=== PATIENT | male | born 1950 | race Caucasian/White ===

== ENCOUNTER 2017-07-26 13:34 | Emergency (ER) | payer MEDICARE ==
--- NOTE | 2017-07-26 15:11 | ER Document Report ---
ED Medical Screen (RME) - General Chief Complaint: Abdominal Pain Stated Complaint: LOWER ABDOMINAL PAIN Time Seen by Provider: 07/26/17 15:09 Notes: Painful swelling in the left groin. Patient says it has been a swollen lump for many months, but this morning around 4 AM it began to hurt severely. The lump will not go away. Painful to touch. No vomiting. Patient has a moderate sized incarcerated left inguinal hernia which I cannot reduce with him in standing position in the RME. TRAVEL OUTSIDE OF THE [place] IN LAST 30 DAYS: No - Related Data Allergies/Adverse Reactions: No Known Allergies Allergy (Verified 07/26/17 13:36) Past Medical History - Social History Chew tobacco use (# tins/day): No Frequency of alcohol use: Heavy Drug Abuse: None Renal/ Medical History: Denies: Hx Peritoneal Dialysis Physical Exam - Vital signs Vitals: Temp Pulse Resp BP Pulse Ox 97.7 F 78 18 178/89 H 94 07/26/17 14:01 07/26/17 14:01 07/26/17 14:01 07/26/17 14:01 07/26/17 14:01 Course - Vital Signs Vital signs: Temp Pulse Resp BP Pulse Ox 98.5 F 70 16 165/96 H 94 07/26/17 15:48 07/26/17 15:48 07/26/17 15:48 07/26/17 15:48 07/26/17 14:01 Doctor's Discharge - Discharge Clinical Impression: Reducible inguinal hernia Condition: Fair Disposition: HOME, SELF-CARE Instructions: Bowel Obstruction ([facility]), Hernia ([facility])
--- NOTE | 2017-07-26 15:21 | ER Document Report ---
ED GI/ - General Chief Complaint: Abdominal Pain Stated Complaint: LOWER ABDOMINAL PAIN Time Seen by Provider: 07/26/17 15:09 Mode of Arrival: Ambulatory Information source: Patient Notes: History of complain-67 years old male with no significant known past medical history, presents today with left inguinal groin pain. He has been having hernia for a while but did not have any pain but today the pain was severe. Not associated with any nausea vomiting. Each time he urinated increases the pain to. Denies any fever chills or other constitutional symptoms. REVIEW OF SYSTEMS: CONSTITUTIONAL : Denies fever, chills, or sweats. Denies recent illness. EENT: Denies eye, ear, throat, or mouth pain or symptoms. Denies nasal or sinus congestion or discharge. Denies throat, tongue, or mouth swelling or difficulty swallowing. CARDIOVASCULAR: Denies chest pain. Denies palpitations or racing or irregular heart beat. Denies ankle edema. RESPIRATORY: Denies cough, cold, or chest congestion. Denies shortness of breath, difficulty breathing, or wheezing. GASTROINTESTINAL: Denies abdominal pain or distention. Denies nausea, vomiting , or diarrhea. Denies blood in vomitus, stools, or per rectum. Denies black, tarry stools. Denies constipation. GENITOURINARY: Denies difficulty urinating, painful urination, burning, frequency, blood in urine, or discharge. MUSCULOSKELETAL: Denies back or neck pain or stiffness. Denies joint pain or swelling. SKIN: Denies rash, lesions or sores. HEMATOLOGIC : Denies easy bruising or bleeding. LYMPHATIC: Denies swollen, enlarged glands. NEUROLOGICAL: Denies confusion or altered mental status. Denies passing out or loss of consciousness. Denies dizziness or lightheadedness. Denies headache. Denies weakness or paralysis or loss of use of either side. Denies problems with gait or speech. Denies sensory loss, numbness, or tingling. Denies seizures. PSYCHIATRIC: Denies anxiety or stress. Denies depression, suicidal ideation, or homicidal ideation. ALL OTHER SYSTEMS REVIEWED AND NEGATIVE. Dictation was performed using [employer] recognition software PHYSICAL EXAMINATION: GENERAL: Well-appearing, well-nourished and in no acute distress. HEAD: Atraumatic, normocephalic. EYES: Pupils equal round and reactive to light, extraocular movements intact, sclera anicteric, conjunctiva are normal. ENT: Nares patent, oropharynx clear without exudates. Moist mucous membranes. NECK: Normal range of motion, supple without lymphadenopathy LUNGS: Breath sounds clear to auscultation bilaterally and equal. No wheezes rales or rhonchi. HEART: Regular rate and rhythm without murmurs ABDOMEN: Soft, nontender, nondistended abdomen. No guarding, no rebound. No masses appreciated. The left inguinal hernia noted in the groin. Which is hard tender nonreducible. Appears like indirect hernia. Extending to the scrotum. Musculoskeletal: Normal range of motion, no pitting or edema. No cyanosis. NEUROLOGICAL: Cranial nerves grossly intact. Normal speech, normal gait. Normal sensory, motor exams PSYCH: Normal mood, normal affect. SKIN: Warm, Dry, normal turgor, no rashes or lesions noted. TRAVEL OUTSIDE OF THE [place] IN LAST 30 DAYS: No - HPI Patient complains to provider of: Abdominal pain Onset: Yesterday Timing/Duration: Gradual Quality of pain: Sharp. denies: No pain, Achy, Burning, Cramping, Dull, Fullness, Pressure, Stabbing, Throbbing, Other Severity at maximum: Severe Severity in ED: Severe Pain Level: 3 Location: LLQ. No: Chest pain, Epigastric, LUQ, RUQ, RLQ, Left flank, Right flank, Low back, Suprapubic, Pelvis, Left testicle, Right testicle, Rectal, Other Associated symptoms: denies: None, Blood in emesis, Blood in stool, Chest pain, Chills, Coffee ground emesis, Constipation, Diarrhea, Dizzy, Dysuria, Erection problem, Fever, Foreskin problem, Hard stool, Hematuria, Hematospermia, Hurts to breath, Inguinal mass, Lightheaded, Loss of appetite, Nausea, Painful intercourse, Penile discharge, Radiates to back, Radiates to chest, Radiates to testicles, Radiates to shoulder, Shortness of breath, Sweaty, Syncope, Urinary hesitancy, Urinary frequency, Urinary retention, Urinary urgency, Vomiting, Other - Related Data Allergies/Adverse Reactions: No Known Allergies Allergy (Verified 07/26/17 13:36) Past Medical History - Social History Smoking Status: Current Every Day Smoker Chew tobacco use (# tins/day): No Frequency of alcohol use: Heavy Drug Abuse: None Family History: Reviewed & Not Pertinent Patient has suicidal ideation: No Patient has homicidal ideation: No - Past Medical History Cardiac Medical History: Denies: None, Hx Atrial Fibrillation, Hx Congestive Heart Failure, Hx Coronary Artery Disease, Hx DVT, Hx Heart Attack, Hx Hypercholesterolemia, Hx Hypertension, Hx Peripheral Vascular Disease, Hx Pulmonary Embolism, Hx Heart Murmur, Other Pulmonary Medical History: Denies: None, Hx Asthma, Hx Bronchitis, Hx COPD, Hx Pneumonia, Hx Intubation , Hx Respiratory Failure, Hx Sleep Apnea, Hx Tuberculosis, Other Renal/ Medical History: Denies: Hx Peritoneal Dialysis Review of Systems - Review of Systems Constitutional: denies: No symptoms reported, See HPI, Chills, Diaphoresis, Fever, Malaise, Weakness, Other, Weight gain, Weight loss, Recent illness EENT: denies: No symptoms reported, See HPI, Eye pain, Eye discharge, Blurred vision, Tearing, Double vision, Ear pain, Ear discharge, Nose pain, Nose congestion, Nose discharge, Sinus pressure, Sinus discharge, Throat pain, Difficulty swallowing, Throat swelling, Mouth pain, Mouth swelling, Dental problem, Vertigo, Other Cardiovascular: denies: No symptoms reported, See HPI, Chest pain, Palpitations , Heart racing, Orthopnea, Dyspnea, Syncope, Dizziness, Lightheaded, Edema, Other, Paroxysmal Nocturnal Dysp Respiratory: denies: No symptoms reported, See HPI, Cough, Hurts to breathe, Hemoptysis, Short of breath, Sputum, Stridor, Wheezing, Other Gastrointestinal: See HPI Genitourinary: denies: No symptoms reported, See HPI, Burning, Dysuria, Discharge, Frequency, Flank pain, Hematuria, Incontinence, Pain, Urgency, Retention, Other Physical Exam - Vital signs Vitals: Temp Pulse Resp BP Pulse Ox 97.7 F 78 18 178/89 H 94 07/26/17 14:01 07/26/17 14:01 07/26/17 14:01 07/26/17 14:01 07/26/17 14:01 - Notes Notes: Examination dictated Course - Re-evaluation Re-evalutation: 07/26/17 15:21 Surgeon manufacturing operations manager was asked to come and evaluate. 07/26/17 15:33 The patient was evaluated by Dr. Curtis, hernia was reduced - Vital Signs Vital signs: Temp Pulse Resp BP Pulse Ox 98.5 F 70 16 165/96 H 94 07/26/17 15:48 07/26/17 15:48 07/26/17 15:48 07/26/17 15:48 07/26/17 14:01 Discharge - Discharge Clinical Impression: Reducible inguinal hernia Condition: Fair Disposition: HOME, SELF-CARE Instructions: Bowel Obstruction ([facility]), Hernia ([facility])
[2017-07-26 15:49] VITALS: BP 165/96
--- NOTE | 2017-07-26 16:46 | PDOC CONSULTATION ---
Consultation Consult Date: 07/26/17 Consult reason:: Left inguinal hernia History of Present Illness Patient complains of: Left inguinal pain, left inguinal hernia History of Present Illness: LAUREEN BOO is a 67 year old male with a 3-4 day history of a bulge in the left groin. It is tender and painful. It never goes away. He is a bricklayer helper and strains every day. He has noticed a bulge for the last 6-8 months. Prior to this week, it has never bothered him. The patient reports strenuous work over the last week. His left groin has become more and more painful. He presents to the ER today because of pain. He denies fevers, chills, nausea, vomiting, melena, hematochezia, dizziness, orthostasis, headache, malaise, fatigue, blurry vision. Activity makes his pain worse, nothing makes it better. Past Medical History Cardiac Medical History: Denies: None, Atrial Fibrillation, Congestive Heart Failure, Coronary Artery Disease, DVT, Myocardial Infarction, Hyperlipidema, Hypertension, Peripheral Vascular Disease, Pulmonary Embolism, Heart Murmur, Other Pulmonary Medical History: Denies: None, Asthma, Bronchitis, Chronic Obstructive Pulmonary Disease (COPD ), Intubation, Pneumonia, Respiratory Failure, Sleep Apnea, Tuberculosis, Other EENT Medical History: Reports: None Neurological Medical History: Reports: None Endocrine Medical History: Reports: None Renal/ Medical History: Reports: None Malignancy Medical History: Reports: None GI Medical History: Reports: Other - Painful left inguinal hernia. Musculoskeltal Medical History: Reports: None Skin Medical History: Reports: None Psychiatric Medical History: Reports: Alcohol Dependency, Tobacco Dependency Traumatic Medical History: Reports: None Hematology: Reports: None Infectious Medical History: Reports: None Past Surgical History Past Surgical History: Surgery to right wrist to repair torn ligaments. Social History Smoking Status: Current Every Day Smoker Frequency of Alcohol Use: Heavy - Drinks multiple beers, every day Hx Recreational Drug Use: No Drugs: None Hx Prescription Drug Abuse: No Family History Family History: Reviewed & Not Pertinent Parental Family History Reviewed: Yes Children Family History Reviewed: Yes Sibling(s) Family History Reviewed.: Yes Medication/Allergy Allergies/Adverse Reactions: No Known Allergies Allergy (Verified 07/26/17 13:36) Review of Systems Constitutional: ABSENT: anorexia, chills, fatigue, fever(s), headache(s), night sweats, weakness Eyes: ABSENT: visual disturbances Ears: ABSENT: hearing changes Nose, Mouth, and Throat: ABSENT: sore throat Cardiovascular: ABSENT: chest pain, dyspnea on exertion, edema, palpitations Respiratory: ABSENT: cough, dyspnea Gastrointestinal: PRESENT: abdominal pain - In the left groin, with a bulge. ABSENT: heartburn, melena, nausea, vomiting Musculoskeletal: ABSENT: joint swelling, muscle weakness Integumentary: ABSENT: pruritus, rash Neurological: ABSENT: abnormal speech, confusion Psychiatric: PRESENT: other - Alcohol dependence. ABSENT: anxiety Endocrine: ABSENT: cold intolerance, heat intolerance Hematologic/Lymphatic: ABSENT: easy bleeding, easy bruising Physical Exam Vital Signs: Temp Pulse Resp BP Pulse Ox 98.5 F 70 16 165/96 H 94 07/26/17 15:48 07/26/17 15:48 07/26/17 15:48 07/26/17 15:48 07/26/17 14:01 Intake & Output 07/25/17 07/26/17 07/27/17 06:59 06:59 06:59 Weight 62.5 kg General appearance: PRESENT: mild distress - Left inguinal pain. Head exam: PRESENT: atraumatic, normocephalic Eye exam: PRESENT: EOMI, PERRLA. ABSENT: conjunctival injection, scleral icterus Mouth exam: PRESENT: moist, neck supple Throat exam: PRESENT: other - Oropharynx benign Neck exam: ABSENT: lymphadenopathy, meningismus, tenderness, thyromegaly, tracheal deviation Respiratory exam: PRESENT: clear to auscultation nighat. ABSENT: chest wall tenderness, rales, rhonchi, stridor, tachypnea, wheezes Cardiovascular exam: PRESENT: RRR Vascular exam: PRESENT: normal capillary refill. ABSENT: pallor GI/Abdominal exam: PRESENT: hernia - Left inguinal hernia, reducible with pressure, soft, tenderness - Overlying left inguinal hernia. ABSENT: distended , firm, guarding, rebound Rectal exam: PRESENT: deferred Gentrourinary exam: ABSENT: ecchymosis, lesions Extremities exam: ABSENT: pedal edema Musculoskeletal exam: PRESENT: ambulatory, normal inspection Neurological exam: PRESENT: alert, awake, oriented to person, oriented to place , oriented to time, CN II-XII grossly intact, normal gait. ABSENT: motor sensory deficit Psychiatric exam: PRESENT: agitated - Mildly. ABSENT: anxious, depressed Skin exam: PRESENT: normal color. ABSENT: cyanosis, erythema, jaundice, mottled , rash Assessment & Plan - Diagnosis (1) Reducible inguinal hernia Is this a current diagnosis for this admission?: Yes - Plan Summary Plan Summary: This is a 67-year-old male is a 6-8 month history of a left inguinal hernia. It has recently become more symptomatic, after lifting at work. The patient reports that the bulge never goes away, and that his pain is increasing. On exam, the hernia was easily reducible. The patient stood up and walked in my presence without immediate recurrence. I have insisted that the patient perform no lifting, whatsoever. He does express good understanding of this. The patient is anxious to go home. His abdomen is soft and nontender. He is afebrile. His vital signs are normal. I have instructed the patient to see me in the office this week, to schedule elective hernia repair. I will prescribe Ultram 50 mg p.o. every 6 hours as needed pain (dispense 40). I have also prescribed him a hernia belt. I have instructed him to contact me, or return to the ER, with any new questions or concerns.
== END 2017-07-26 15:50 | disposition home or self-care (01) ==
LOC: ER 13:34
DX: K40.90 Unilateral inguinal hernia, without obstruction or gangrene, not specified as recurrent (principal); R10.32 Left lower quadrant pain; F17.200 Nicotine dependence, unspecified, uncomplicated
CPT/HCPCS: 99283

== ENCOUNTER → 2017-08-15 | Outpatient (CLI) | payer MEDICARE ==
--- NOTE | 2017-08-15 11:47 | RADIOLOGY REPORT (SQ) ---
EXAM DESCRIPTION: CHEST PA/LATERAL COMPLETED DATE/TIME: 08/15/2017 11:04 am REASON FOR STUDY: PRE OP COMPARISON: AP chest 01/19/2007 EXAM PARAMETERS: NUMBER OF VIEWS: two views TECHNIQUE: Digital Frontal and Lateral radiographic views of the chest acquired. RADIATION DOSE: NA LIMITATIONS: none FINDINGS: LUNGS AND PLEURA: No opacities, masses or pneumothorax. No pleural effusion. MEDIASTINUM AND HILAR STRUCTURES: No masses or contour abnormalities. HEART AND VASCULAR STRUCTURES: Heart normal size. No evidence for failure. BONES: Osteopenic. No acute changes HARDWARE: None in the chest. OTHER: No other significant finding. IMPRESSION: NO SIGNIFICANT RADIOGRAPHIC FINDING IN THE CHEST. TECHNICAL DOCUMENTATION: JOB ID: [id number] [facility]- All Rights Reserved Reading location - IP/workstation name: [email or web address]
[2017-08-15 11:57] LABS: ABSOLUTE BASOPHILS # (AUTO) 0.1 10^3/uL (0.0-0.2); ABSOLUTE EOSINOPHILS # (AUTO) 0.4 10^3/uL (0.0-0.6); ABSOLUTE LYMPHOCYTES (AUTO) 1.9 10^3/uL (0.5-4.7); ABSOLUTE MONOCYTES (AUTO) 0.9 10^3/uL (0.1-1.4); ABSOLUTE NEUT (AUTO) 3.9 10^3/uL (1.7-8.2); BASOPHILS % (AUTO) 1.1 % (0-2); HEMATOCRIT 46.4 % (37.9-51.0); HEMOGLOBIN 16.1 g/dL (13.5-17.0); LYMPHOCYTES % (AUTO) 26.4 % (13-45); MEAN CORPUSCULAR HEMOGLOBIN 32.7 pg (27.0-33.4); MEAN CORPUSCULAR HGB CONC 34.6 g/dL (32.0-36.0); MEAN CORPUSCULAR VOLUME 95 fl (80-97); MONOCYTES % (AUTO) 12.6 % (3-13); PLATELET COUNT 182 10^3/uL (150-450); RED BLOOD COUNT 4.91 10^6/uL (4.35-5.55); RED CELL DISTRIBUTION WIDTH 14.3 % (11.5-14.0); SEGMENTED NEUTROPHILS % (AUTO) 53.9 % (42-78); TOTAL CELLS COUNTED % (AUTO) 100 %; WHITE BLOOD COUNT 7.2 10^3/uL (4.0-10.5)
[2017-08-15 12:26] LABS: ANION GAP 11 (5-19); BLOOD UREA NITROGEN 5 mg/dL (7-20); CALCIUM 10.2 mg/dL (8.4-10.2); CARBON DIOXIDE 34 mmol/L (22-30); CHLORIDE 99 mmol/L (98-107); GLUCOSE 94 mg/dL (75-110); POTASSIUM 5.2 mmol/L (3.6-5.0); SODIUM 144.1 mmol/L (137-145)
--- NOTE | 2017-08-18 13:03 | EKG REPORT ---
SEVERITY:- ABNORMAL ECG - L ATRIAL ABNORMALITY SINUS RHYTHM CONSIDER RIGHT VENTRICULAR HYPERTROPHY PROBABLE INFERIOR INFARCT, OLD : Confirmed by: John Khalil MD 18-Aug-2017 13:03:17
== END ==
LOC: OD 10:44
PROVIDERS: ATTEND Surgery
DX: K40.20 Bilateral inguinal hernia, without obstruction or gangrene, not specified as recurrent (principal)
CPT/HCPCS: 36415; 71046; 80048; 85025; 93010